=== PATIENT | male | born 1955 | race Hispanic/Latino ===

== ENCOUNTER 2021-10-06 16:38 | Inpatient (IN) | payer MEDICARE ==
[~2021-10-06 16:38] MED LIST: Iopamidol 370 76% 100 ML VIAL ONE
[2021-10-06] MEDS ORDERED: Acetaminophen 500 MG TAB ONE ×2 (17:40→17:42)
[2021-10-06 17:48] LABS: #Lymphocytes 1.3 thou/uL (1.20-3.40); #Monocytes 0.5 thou/uL (0.11-0.59); #Neutrophils 11.3 thou/uL (1.40-6.50); %Basophils 0.1 % (0.0-1.0); %Eosinophils 0.3 % (0.0-10.0); %Lymphocytes 9.8 % (21.0-51.0); %Monocytes 3.6 % (0.0-10.0); %Neutrophils 86.3 % (42.0-75.0); Hemoglobin 14.2 g/dL (14.0-18.0); Mean Corpuscular HGB CONC 34.3 g/dL (32.0-36.0); Mean Corpuscular Hemoglobin 30.6 pg (27.0-31.0); Mean Corpuscular Volume 89.2 fL (78.0-98.0); Platelet Count 412 thou/uL (130-400); RBC Distribution Width 11.9 % (11.5-14.5); Red Blood Cell (RBC) Count 4.64 mill/uL (4.70-6.10); White Blood Cell (WBC) Count 13.1 thou/uL (4.8-10.8)
[2021-10-06 18:04] LABS: ALT (SGPT) 11 U/L (8-55); AST (SGOT) 13 U/L (5-34); Albumin 3.8 g/dL (3.4-4.8); Alkaline Phosphatase 125 U/L (40-110); Anion Gap 21 mmol/L (10-20); BUN (Urea Nitrogen) 18 mg/dL (8.4-25.7); Bilirubin, Total 0.8 mg/dL (0.2-1.2); Calc. Creatinine Clearance 0 mL/min (70-130); Carbon Dioxide 26 mmol/L (23-31); Chloride 93 mmol/L (98-107); Globulin 3.6 g/dL (2.4-3.5); Glucose 239 mg/dL (80-115); Lipase 14 U/L (8-78); Potassium 3.6 mmol/L (3.5-5.1); Protein, Total 7.4 g/dL (5.8-8.1); Sodium 136 mmol/L (136-145)
[2021-10-06] MEDS ORDERED: Morphine 4 MG/ML VIAL ONE (18:44)
[2021-10-06] MEDS ORDERED: cefTRIAXone\\ROCEPHIN 1 GM VIAL ONE (18:44)
[2021-10-06] MEDS ORDERED: Ketorolac Tromethamine 30 MG/ML VIAL ONE (18:44)
[2021-10-06] MEDS ORDERED: Azithromycin 250 MG TAB PO SCH (19:00)
[2021-10-06] MEDS ORDERED: Azithromycin 250 MG TAB ONE (19:12)
[2021-10-06] MEDS ORDERED: Ondansetron ODT 4 MG TAB SL PRN (21:45)
[2021-10-06] MEDS ORDERED: Ondansetron PF 4 MG/2 ML Vial IVP PRN (21:45)
[2021-10-06] MEDS ORDERED: Acetaminophen 325 MG TAB PO PRN (21:45)
[2021-10-06] MEDS ORDERED: HYDROcodone/Acetaminophen 5/325 mg Tablet PO PRN (22:23)
[2021-10-06] MEDS ORDERED: Dextrose 5% in Water 1,000 ML IV PRN (22:23)
[2021-10-06] MEDS ORDERED: Dextrose 50% Abboject 50 ML SYRINGE SLOW IVP PRN (22:23)
[2021-10-06] MEDS ORDERED: Bisacodyl 5 MG TAB PO PRN (22:23)
[2021-10-06] MEDS ORDERED: Guaifenesin DM 100-10/5 ML UDCUP PO PRN (22:23)
[2021-10-06] MEDS ORDERED: Senokot S 8.6-50 MG TAB PO PRN (22:23)
[2021-10-06] MEDS ORDERED: Enoxaparin Sodium 40 MG/0.4 ML SYRINGE SC SCH (22:45)
[2021-10-06] MEDS ORDERED: hydrALAZINE 20 MG/ML VIAL SLOW IVP PRN (23:58)
[2021-10-07 04:46] LABS: #Eosinphils 0.1 thou/uL (0.0-0.7); #Lymphocytes 1.5 thou/uL (1.20-3.40); #Monocytes 0.6 thou/uL (0.11-0.59); #Neutrophils 9.7 thou/uL (1.40-6.50); %Basophils 0.2 % (0.0-1.0); %Eosinophils 0.7 % (0.0-10.0); %Lymphocytes 12.5 % (21.0-51.0); %Monocytes 4.8 % (0.0-10.0); %Neutrophils 81.7 % (42.0-75.0); Hemoglobin 12.2 g/dL (14.0-18.0); Mean Corpuscular HGB CONC 33.8 g/dL (32.0-36.0); Mean Corpuscular Hemoglobin 30.2 pg (27.0-31.0); Mean Corpuscular Volume 89.4 fL (78.0-98.0); Platelet Count 365 thou/uL (130-400); RBC Distribution Width 11.8 % (11.5-14.5); Red Blood Cell (RBC) Count 4.03 mill/uL (4.70-6.10); White Blood Cell (WBC) Count 11.9 thou/uL (4.8-10.8)
[2021-10-07 05:11] LABS: ALT (SGPT) 13 U/L (8-55); AST (SGOT) 15 U/L (5-34); Albumin 3.3 g/dL (3.4-4.8); Alkaline Phosphatase 122 U/L (40-110); Anion Gap 12 mmol/L (10-20); BUN (Urea Nitrogen) 19 mg/dL (8.4-25.7); Bilirubin, Total 0.6 mg/dL (0.2-1.2); Calc. Creatinine Clearance 74 mL/min (70-130); Calcium 8.8 mg/dL (7.8-10.44); Carbon Dioxide 28 mmol/L (23-31); Cardiac Risk 5.5 (Less than 4.5); Chloride 97 mmol/L (98-107); Cholesterol 104 mg/dl (< 200 Desired); Globulin 3.6 g/dL (2.4-3.5); Glucose 284 mg/dL (80-115); HDL Cholesterol 19 mg/dL (>60 Neg Risk); LDL Cholesterol, Calculated 52 mg/dL; Potassium 3.1 mmol/L (3.5-5.1); Protein, Total 6.9 g/dL (5.8-8.1); Sodium 134 mmol/L (136-145); Triglycerides 163 mg/dL (Less than 150)
[2021-10-07] MEDS: Levothyroxine Sodium 50 MCG TAB PO SCH (05:26)
[2021-10-07] MEDS: HumaLOG 300 UNITS/3 ML VIAL SC PRN (05:52)
[2021-10-07] MEDS: HYDROcodone/Acetaminophen 7.5/325 mg Tablet PO PRN ×3 (09:15→21:29)
[2021-10-07] MEDS: Pantoprazole 40 MG VIAL IVP SCH ×2 (09:17→21:29)
[2021-10-07] MEDS: Amlodipine 10 MG TAB PO SCH (09:17)
[2021-10-07] MEDS: Lidocaine 5% Patch TD SCH (12:00)
[2021-10-07] MEDS ORDERED: CEFAZOLIN 2 GM, Admixture Fee 1 EACH in Sodium Chloride 0.9% 100 ML IVPB SCH (14:30)
[2021-10-07] MEDS: Potassium Chloride 20 MEQ TAB PO SCH ×2 (17:40→21:29)
[2021-10-07] MEDS: Enoxaparin Sodium 40 MG/0.4 ML SYRINGE SC SCH (21:29)
[2021-10-07] MEDS: Atorvastatin Calcium 10 MG TAB PO SCH (21:29)
[2021-10-07] MEDS: CEFAZOLIN 2 GM, Admixture Fee 1 EACH in Sodium Chloride 0.9% 100 ML IVPB SCH (22:20)
[2021-10-07] MEDS: Transdermal Patch Removal TOP SCH (22:21)
[2021-10-08] MEDS: HYDROcodone/Acetaminophen 7.5/325 mg Tablet PO PRN ×3 (03:29→16:02)
[2021-10-08] MEDS: Levothyroxine Sodium 50 MCG TAB PO SCH (05:44)
[2021-10-08] MEDS: CEFAZOLIN 2 GM, Admixture Fee 1 EACH in Sodium Chloride 0.9% 100 ML IVPB SCH ×3 (05:44→21:25)
[2021-10-08] MEDS: Lidocaine 5% Patch TD SCH (08:12)
[2021-10-08] MEDS: Pantoprazole 40 MG VIAL IVP SCH ×2 (08:12→21:25)
[2021-10-08] MEDS: Amlodipine 10 MG TAB PO SCH (08:13)
[2021-10-08] MEDS ORDERED: Lidocaine 5% Patch TD SCH (09:00)
[2021-10-08] MEDS ORDERED: PROPOFOL 200 MG/20 ML VIAL ONE (11:50)
[2021-10-08] MEDS: Morphine 4 MG/ML VIAL SLOW IVP PRN (16:04)
[2021-10-08] MEDS: Atorvastatin Calcium 10 MG TAB PO SCH (21:24)
[2021-10-08] MEDS: Enoxaparin Sodium 40 MG/0.4 ML SYRINGE SC SCH (21:25)
[2021-10-08] MEDS: HYDROcodone/Acetaminophen 5/325 mg Tablet PO SCH (21:25)
[2021-10-08] MEDS: Transdermal Patch Removal TOP SCH (21:26)
[2021-10-08] MEDS: HumaLOG 300 UNITS/3 ML VIAL SC PRN (21:26)
[2021-10-09] MEDS: Melatonin 3 MG TAB PO PRN ×2 (01:23→21:43)
[2021-10-09] MEDS: Morphine 4 MG/ML VIAL SLOW IVP PRN ×5 (01:23→21:42)
[2021-10-09] MEDS: CEFAZOLIN 2 GM, Admixture Fee 1 EACH in Sodium Chloride 0.9% 100 ML IVPB SCH ×3 (05:34→21:40)
[2021-10-09] MEDS: Levothyroxine Sodium 50 MCG TAB PO SCH (05:34)
[2021-10-09] MEDS: HumaLOG 300 UNITS/3 ML VIAL SC PRN ×4 (06:07→21:39)
[2021-10-09] MEDS ORDERED: FLU VACC QS2021-22(65YR UP)/PF 240 MCG/0.7 ML SYRINGE IM ONE (09:00)
[2021-10-09] MEDS: Lidocaine 5% Patch TD SCH (09:59)
[2021-10-09] MEDS: Amlodipine 10 MG TAB PO SCH (09:59)
[2021-10-09] MEDS: Pantoprazole 40 MG VIAL IVP SCH (09:59)
[2021-10-09] MEDS: HYDROcodone/Acetaminophen 5/325 mg Tablet PO SCH ×2 (09:59→21:44)
[2021-10-09] MEDS ORDERED: Magnevist 469MG/ML 20 ML VIAL ONE ×2 (12:31)
[2021-10-09] MEDS: Enoxaparin Sodium 40 MG/0.4 ML SYRINGE SC SCH (21:44)
[2021-10-09] MEDS: Transdermal Patch Removal TOP SCH (21:44)
[2021-10-09] MEDS: Atorvastatin Calcium 10 MG TAB PO SCH (21:44)
[2021-10-10] MEDS: Morphine 4 MG/ML VIAL SLOW IVP PRN ×2 (04:33→18:21)
[2021-10-10] MEDS: CEFAZOLIN 2 GM, Admixture Fee 1 EACH in Sodium Chloride 0.9% 100 ML IVPB SCH ×3 (06:03→21:13)
[2021-10-10] MEDS: Levothyroxine Sodium 50 MCG TAB PO SCH (06:03)
[2021-10-10] MEDS: HumaLOG 300 UNITS/3 ML VIAL SC PRN ×4 (06:19→21:07)
[2021-10-10] MEDS: Amlodipine 10 MG TAB PO SCH (08:57)
[2021-10-10] MEDS: Lidocaine 5% Patch TD SCH (08:57)
[2021-10-10] MEDS: HYDROcodone/Acetaminophen 5/325 mg Tablet PO SCH ×2 (08:58→21:08)
[2021-10-10] MEDS: Atorvastatin Calcium 10 MG TAB PO SCH (21:10)
[2021-10-10] MEDS: Melatonin 3 MG TAB PO PRN (21:10)
[2021-10-10] MEDS: Enoxaparin Sodium 40 MG/0.4 ML SYRINGE SC SCH (21:11)
[2021-10-10] MEDS: Transdermal Patch Removal TOP SCH (21:13)
[2021-10-11] MEDS: Levothyroxine Sodium 50 MCG TAB PO SCH (05:10)
[2021-10-11] MEDS: CEFAZOLIN 2 GM, Admixture Fee 1 EACH in Sodium Chloride 0.9% 100 ML IVPB SCH ×3 (05:11→21:04)
[2021-10-11] MEDS: HumaLOG 300 UNITS/3 ML VIAL SC PRN ×4 (05:38→21:02)
[2021-10-11] MEDS: Lidocaine 5% Patch TD SCH (08:54)
[2021-10-11] MEDS: HYDROcodone/Acetaminophen 5/325 mg Tablet PO SCH (08:54)
[2021-10-11] MEDS: Amlodipine 10 MG TAB PO SCH (08:55)
[2021-10-11] MEDS ORDERED: Lantus 1000 UNITS/10 ML VIAL SC SCH (10:45)
[2021-10-11 11:16] VITALS: BMI 22.6
[2021-10-11 15:08] LABS: SARS-CoV-2 PCR by NAA Not Detected (NotDetected)
[2021-10-11] MEDS ORDERED: HYDROcodone/Acetaminophen 5/325 mg Tablet PO PRN (16:13)
[2021-10-11] MEDS: Atorvastatin Calcium 10 MG TAB PO SCH (21:00)
[2021-10-11] MEDS: Enoxaparin Sodium 40 MG/0.4 ML SYRINGE SC SCH (21:00)
[2021-10-11] MEDS: Transdermal Patch Removal TOP SCH (21:04)
[2021-10-11 22:01] VITALS: TEMP 98
[2021-10-12] MEDS: Levothyroxine Sodium 50 MCG TAB PO SCH (05:47)
[2021-10-12] MEDS: HumaLOG 300 UNITS/3 ML VIAL SC PRN ×3 (05:49→16:18)
[2021-10-12] MEDS: CEFAZOLIN 2 GM, Admixture Fee 1 EACH in Sodium Chloride 0.9% 100 ML IVPB SCH ×2 (06:06→15:32)
[2021-10-12] MEDS: Amlodipine 10 MG TAB PO SCH (08:06)
[2021-10-12 08:22] VITALS: BP 136/71
[2021-10-12] MEDS ORDERED: Lidocaine 5% Patch TD SCH (09:00)
[2021-10-12] MEDS ORDERED: Lantus 1000 UNITS/10 ML VIAL SC SCH ×2 (09:00→11:15)
[2021-10-12] MEDS ORDERED: Magnesium Citrate 300 ML BOT PO SCH (09:45)
[2021-10-12] MEDS ORDERED: cefTRIAXone\\ROCEPHIN 2 GM in Sodium Chloride 0.9% 100 ML IVPB SCH (15:00)
[2021-10-12] MEDS ORDERED: Transdermal Patch Removal TOP SCH (21:00)
[2021-10-13] MEDS ORDERED: Lantus 1000 UNITS/10 ML VIAL SC SCH (09:00)
== END 2021-10-12 17:06 | DRG 871 ==
LOC: ERS 16:38 → 2NO 20:53 → MSONC 10-09 20:01
PROVIDERS: ADMIT Internal Medicine; ATTEND Internal Medicine
PROC: 3E03329 Introduction of Other Anti-infective into Peripheral Vein, Percutaneous Approach (ICD-10-PCS; principal; 2021-10-06)
PROC: 0DJ08ZZ Inspection of Upper Intestinal Tract, Via Natural or Artificial Opening Endoscopic (ICD-10-PCS; 2021-10-08)
PROC: 02HV33Z Insertion of Infusion Device into Superior Vena Cava, Percutaneous Approach (ICD-10-PCS; 2021-10-11)
PROC: B5181ZA Fluoroscopy of Superior Vena Cava using Low Osmolar Contrast, Guidance (ICD-10-PCS; 2021-10-11)
PROC: B548ZZA Ultrasonography of Superior Vena Cava, Guidance (ICD-10-PCS; 2021-10-11)
DX: A41.01 Sepsis due to Methicillin susceptible Staphylococcus aureus (principal); G06.1 Intraspinal abscess and granuloma; Z20.822 Contact with and (suspected) exposure to COVID-19; J98.59 Other diseases of mediastinum, not elsewhere classified; E87.1 Hypo-osmolality and hyponatremia; J90 Pleural effusion, not elsewhere classified; M60.08 Infective myositis, other site; E87.6 Hypokalemia; E88.09 Other disorders of plasma-protein metabolism, not elsewhere classified; E78.5 Hyperlipidemia, unspecified; I10 Essential (primary) hypertension; E11.65 Type 2 diabetes mellitus with hyperglycemia; R91.1 Solitary pulmonary nodule; E03.9 Hypothyroidism, unspecified; R13.10 Dysphagia, unspecified; Z28.21 Immunization not carried out because of patient refusal; Z79.899 Other long term (current) drug therapy; Z79.890 Hormone replacement therapy; Z79.1 Long term (current) use of non-steroidal anti-inflammatories (NSAID)
CPT/HCPCS: 36415; 36416; 36569; 71045; 71275; 72156; 72157; 80053; 80061; 82378; 83690; 83880; 84484; 85025; 85652; 86140; 87040; 87077; 87149; 87186; 93005; 96365; 96375; A9579; C1751; C9113; J0690; J0696; J1650; J1815; J1885; J2270; J2704; J3490; Q9967; U0003; U0005